=== PATIENT | female | born 1980 | race Caucasian/White ===

== ENCOUNTER 2023-10-19 15:01 | Emergency (ER) | payer MEDICAID, OTHER ==
[~2023-10-19] VITALS: Ht 167.6 cm; Wt 61.2 kg
[2023-10-19] MEDS ORDERED: HYDROCODONE/APAP 5-325MG TABLET ONE (15:46)
[2023-10-19] MEDS: HYDROCODONE/APAP 5-325MG TABLET PO ONE (15:46)
[2023-10-19 16:05] LABS: BASOPHILS % (AUTO) 0.3 % (0.0-2.0); EOSINOPHILS # (AUTO) 0.1 K/uL (0.0-0.7); EOSINOPHILS % (AUTO) 1.4 % (0.0-7.0); HEMOGLOBIN 14.5 g/dL (10.9-14.3); LYMPHOCYTES # (AUTO) 2.3 K/uL (0.8-4.8); LYMPHOCYTES % (AUTO) 26.1 % (20.5-51.5); MEAN CORPUSCULAR HEMOGLOBIN 30.6 uug (24.7-32.8); MEAN CORPUSCULAR HGB CONC 34 g/dL (32.3-35.6); MEAN CORPUSCULAR VOLUME 90.7 fL (75.5-95.3); MONOCYTES # (AUTO) 0.5 K/uL (0.1-1.30); MONOCYTES % (AUTO) 6.1 % (0.0-11.0); NEUTROPHILS # (AUTO) 5.7 K/uL (1.8-8.9); NEUTROPHILS % (AUTO) 66.1 % (38.5-71.5); PLATELET COUNT (AUTO) 353 K/uL (179-408); RED BLOOD CELL COUNT(AUTO) 4.75 MIL/uL (3.63-4.92); RED CELL DISTRIBUTION WIDTH 12.8 % (12.3-17.7); WHITE BLOOD COUNT (AUTO) 8.7 K/uL (3.8-11.8)
[2023-10-19 16:06] LABS: DIFFERENTIAL COMMENT 1
[2023-10-19 16:14] LABS: CALCIUM 9.5 mg/dL (8.5-10.1); CREATININE 0.7 mg/dL (0.6-1.3); POTASSIUM 3.8 mmol/L (3.5-5.1)
[2023-10-19 16:20] LABS: BILIRUBIN,TOTAL 0.6 mg/dL (0.2-1.0); TOTAL PROTEIN, SERUM 7.9 g/dL (6.4-8.2)
[2023-10-19] MEDS ORDERED: IV NORMAL SALINE 250 ML IV ONE (16:23)
[2023-10-19] MEDS ORDERED: SWABABLE VALVE TRANSFER SET EA MC ONE (16:23)
[2023-10-19] MEDS ORDERED: IOHEXOL 350 100 ML INFUS..BTL ONE (16:25)
[2023-10-19] MEDS: IV NS 1000 ML 1,000 ML IV ONE (16:27)
[2023-10-19] MEDS ORDERED: LORAZEPAM 2 MG/1 ML VIAL ONE (16:31)
[2023-10-19] MEDS: LORAZEPAM 2 MG/1 ML VIAL IV ONE (16:35)
[2023-10-19 17:00] VITALS: O2SAT 97
== END 2023-10-19 17:24 | disposition left against medical advice (07) ==
LOC: ER 15:01
DX: R20.2 Paresthesia of skin (principal); Z79.1 Long term (current) use of non-steroidal anti-inflammatories (NSAID)
CPT/HCPCS: 36415; 70450; 70496; 85025; 85610; 85730; A4606; A4663; J2060; J7040; Q9967